=== PATIENT | male | born 2000 | race Caucasian/White ===

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

== ENCOUNTER 2018-06-12 19:32 | Emergency (ER) | payer BC, OTHER ==
[2018-06-12 19:49] VITALS: BP 125/89
[2018-06-12] MEDS ORDERED: Acetaminophen TAB* 325 MG PO ONE ×2 (20:34)
--- NOTE | 2018-06-12 20:47 | UC ---
Head Injury HPI - HPI Summary HPI Summary: Patient was about 2 feet off the ground on some scaffolding hanging some lighting when he took a misstep and fell backwards. Hit the back of his head on the concrete floor. Also struck his right hip. Denies any LOC. Has a mild diffuse headache but no dizziness, nausea or visual disturbances. - History Of Current Complaint Chief Complaint: UCHeadInjury Stated Complaint: HEAD INJURY Time Seen by Provider: 06/12/18 20:18 Hx Obtained From: Patient Onset/Duration: Sudden Onset, Lasting Hours, Still Present Severity Currently: Moderate Severity Initially: Moderate Pain Intensity: 6 Pain Scale Used: 0-10 Numeric Character: Dull Aggravating Factor(s): Nothing Alleviating Factor(s): Nothing Associated Signs And Symptoms: Negative: LOC (Time In Secs./Mins/Hrs), Confusion , Memory Loss, Epistaxis, Dental Malocclusion, Neck Pain, Nausea, Vomiting - Allergies/Home Medications Allergies/Adverse Reactions: Allergies Allergy/AdvReac Type Severity Reaction Status Date / Time No Known Allergies Allergy Verified 06/12/18 19:37 PMH/Surg Hx/FS Hx/Imm Hx Psychological History: Depression - Surgical History Surgical History: Yes Surgery Procedure, Year, and Place: 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 - Family History Known Family History: Positive: Non-Contributory - Social History Alcohol Use: None Substance Use Type: None Smoking Status (MU): Never Smoked Tobacco Have You Smoked in the Last Year: No - Immunization History Most Recent Influenza Vaccination: unkown Most Recent Pneumonia Vaccination: unkown Review of Systems All Other Systems Reviewed And Are Negative: Yes Skin: Positive: Other - HEMATOMA POSTERIOR SCALP Eyes: Positive: Negative Respiratory: Positive: Negative Cardiovascular: Positive: Negative Gastrointestinal: Positive: Negative Musculoskeletal: Positive: Arthralgia Neurological: Positive: Headache Physical Exam Triage Information Reviewed: Yes Appearance: Well-Appearing, No Pain Distress, Well-Nourished Vital Signs: Initial Vital Signs Temp 97.7 F 06/12/18 19:40 Pulse 85 06/12/18 19:40 Resp 18 06/12/18 19:40 BP 125/89 06/12/18 19:40 Pulse Ox 96 06/12/18 19:40 Vital Signs Reviewed: Yes Eyes: Positive: Conjunctiva Clear, Other: ENT: Positive: Hearing grossly normal, Pharynx normal, TMs normal Neck: Positive: Supple, Nontender, No Lymphadenopathy Respiratory Exam: Normal Cardiovascular Exam: Normal Abdomen Description: Positive: Soft Musculoskeletal: Positive: No Edema, Other: - MILDLY TENDER RIGHT ANTERIOR HIP. LIMITED RIGHT HIP ABDUCTION AND EXTERNAL ROTATION Neurological: Positive: Alert, Other: - CN II-XII GROSSLY INTACT BILATERALLY. RAPID ALTERNATING MOVEMENTS INTACT. NEG PRONATOR DRIFT. NEG ROMBERG. 5/5 STRENGTH. HEEL TO JORDAN INTACT BILATERALLY. TANDEM GAIT INTACT. FINGER TO NOSE INTACT. Psychological: Positive: Age Appropriate Behavior Skin: Positive: Other - HEMATOMA POSTERIOR SCALP. TENDER Diagnostics - Radiology RIGHT HIP XRAYS Radiology Interpretation Completed By: ED Physician Summary of Radiographic Findings: UNREMARKABLE - RADIOLOGY REPORT PENDING Head Injury Course/Dx - Differential Dx/Diagnosis Provider Diagnosis: Concussion, Contusion of right hip, Scalp hematoma Discharge - Sign-Out/Discharge Documenting (check all that apply): Patient Departure All imaging exams completed and their final reports reviewed: No - Discharge Plan Condition: Stable Disposition: HOME Patient Education Materials: Concussion (ED), Head Injury (ED), Scalp Contusion in Adults (ED), Hip Contusion (ED) Forms: *Gen. Provider Communication Referrals: [facility] [Primary Care Provider] - If Needed Additional Instructions: OKAY FOR TYLENOL TONIGHT FOR HEADACHE. STARTING TOMORROW AFTERNOON CAN GIVE IBUPROFEN IF NEEDED. LIMIT SCREEN TIME AND AVOID ACTIVITIES THAT COULD RESULT IN ADDITIONAL HEAD INJURY. NO SPORTS FOR AT LEAST A WEEK. FOLLOW-UP WITH PCP IF SYMPTOMS ARE PERSISTENT AFTER 1 WEEK. GO TO THE ED WITHOUT FAIL IF YOU DEVELOP UNEQUAL PUPILS, VISUAL DISTURBANCE, GAIT INSTABILITY, SPEECH DIFFICULTY, NAUSEA/VOMITING, WORSENING HEADACHE, DIZZINESS, CONFUSION, WEAKNESS OR ANY OTHER CONCERNING SYMPTOMS. RIGHT HIP XRAY TODAY NEGATIVE FOR FRACTURE OR DISLOCATION ON MY INITIAL INTERPRETATION. WE WILL CALL YOU TOMORROW IF THE RADIOLOGY READ DIFFERS. YOUR SYMPTOMS SHOULD IMPROVE SIGNIFICANTLY OVER THE NEXT 1-2 WEEKS. IF YOU DO NOT IMPROVE EXPECTED FOLLOW-UP WITH YOUR PCP. - Billing Disposition and Condition Condition: STABLE Disposition: Home
== END 2018-06-12 21:40 | disposition home or self-care (01) ==
LOC: UCEAST 19:32
DX: S06.0X0A Concussion without loss of consciousness, initial encounter (principal); S70.01XA Contusion of right hip, initial encounter; S00.03XA Contusion of scalp, initial encounter; W12.XXXA Fall on and from scaffolding, initial encounter; Y92.008 Other place in unspecified non-institutional (private) residence as the place of occurrence of the external cause
CPT/HCPCS: 99212; A9270-GY; G0463